=== PATIENT | female | born 1940 ===

== ENCOUNTER 2020-06-15 08:35 | Inpatient (IN) | payer OTHER ==
[~2020-06-15] VITALS: Ht 154.9 cm; Wt 91.6 kg
[2020-06-15] MEDS ORDERED: BAYER THERAPY325 MG PO (09:07)
[2020-06-15] MEDS ORDERED: NEURONTIN800 MG PO (09:07)
[2020-06-15] MEDS ORDERED: COZAAR100 MG PO (09:08)
[2020-06-15] MEDS ORDERED: MIRTAZAPINE15 M1 PO (09:08)
[2020-06-15] MEDS ORDERED: NIFEDIPINE20 MG PO (09:08)
[2020-06-15] MEDS ORDERED: LASIX40 MG PO (09:09)
[2020-06-15] MEDS ORDERED: ATACAND4 MG PO (09:09)
[2020-06-15] MEDS ORDERED: INTERMEZZO3.5 MG (09:10)
[2020-06-15] MEDS ORDERED: CARVEDILOL25 M1 PO (09:10)
[2020-06-15] MEDS ORDERED: ATORVASTATIN CA40 MG PO (09:10)
[2020-06-15] MEDS ORDERED: SYNTHROID175 MCG PO (09:11)
[2020-06-15] MEDS ORDERED: LANTUS SOL100 UNIT/1 SUBCUTANEO (09:12)
[2020-06-15] MEDS ORDERED: HUMALOG MI100 UNIT/2 SQ (09:12)
[2020-06-29] MEDS ORDERED: CARVEDILOL25 MG PO (12:41)
[2020-06-29] MEDS ORDERED: LIPITOR40 MG PO (12:42)
[2020-06-29] MEDS ORDERED: HYDRALAZINE HCL25 MG PO (12:42)
[2020-06-29] MEDS ORDERED: ST. JOSEPH ASPI81 M2 PO (12:43)
[2020-06-29] MEDS ORDERED: GABAPENTIN300 MG PO (12:43)
[2020-06-29] MEDS ORDERED: GABAPENTIN800 MG PO (12:43)
[2020-06-29] MEDS ORDERED: LASIX40 MG PO (12:45)
[2020-06-29] MEDS ORDERED: LANTUS SOL100 UNIT/1 SUBCUTANEO (12:46)
[2020-06-29] MEDS ORDERED: HUMALOG MI100 UNIT/2 SUBCUTANEO (12:47)
[2020-06-29] MEDS ORDERED: ZOLPIDEM TARTRA10 MG PO (12:48)
[2020-06-29] MEDS ORDERED: Procardia Xl 30MG TA PO (12:48)
[2020-06-29] MEDS ORDERED: BENADRYL50 MG PO (12:48)
[2020-06-29] MEDS ORDERED: SYNTHROID175 MCG PO (13:07)
== END 2020-06-29 13:32 | disposition home or self-care (01) | DRG 291 ==
LOC: ER 08:35 → MEDJ 13:14 → ICU-2 13:14 → MEDJ 06-18 12:53
PROVIDERS: ADMIT Internal Medicine; ATTEND Internal Medicine
PROC: B24BZZZ Ultrasonography of Heart with Aorta (ICD-10-PCS; principal; 2020-06-15)
PROC: B54DZZZ Ultrasonography of Bilateral Lower Extremity Veins (ICD-10-PCS; 2020-06-15)
PROC: 5A09557 Assistance with Respiratory Ventilation, Greater than 96 Consecutive Hours, Continuous Positive Airway Pressure (ICD-10-PCS; 2020-06-15)
PROC: 4A12X4Z Monitoring of Cardiac Electrical Activity, External Approach (ICD-10-PCS; 2020-06-18)
PROC: 4A033R1 Measurement of Arterial Saturation, Peripheral, Percutaneous Approach (ICD-10-PCS; 2020-06-19)
DX: I13.0 Hypertensive heart and chronic kidney disease with heart failure and stage 1 through stage 4 chronic kidney disease, or unspecified chronic kidney disease (principal); I50.33 Acute on chronic diastolic (congestive) heart failure; E87.2 Acidosis; J44.1 Chronic obstructive pulmonary disease with (acute) exacerbation; N18.9 Chronic kidney disease, unspecified; E11.9 Type 2 diabetes mellitus without complications; E03.9 Hypothyroidism, unspecified; E66.9 Obesity, unspecified; Z79.4 Long term (current) use of insulin; Z20.828 Contact with and (suspected) exposure to other viral communicable diseases; D64.9 Anemia, unspecified

== ENCOUNTER 2020-09-30 12:59 | Inpatient (IN) | payer OTHER ==
[~2020-09-30] VITALS: Ht 154.9 cm; Wt 245.0 kg
[~2020-09-30 12:59] MED LIST: ATACAND4 MG PO; ATORVASTATIN CA40 MG PO; BAYER THERAPY325 MG PO; BENADRYL50 MG PO; CARVEDILOL25 M1 PO; CARVEDILOL25 MG PO; COZAAR100 MG PO; GABAPENTIN300 MG PO; GABAPENTIN800 MG PO; HUMALOG MI100 UNIT/2 SQ; HUMALOG MI100 UNIT/2 SUBCUTANEO; HYDRALAZINE HCL25 MG PO; INTERMEZZO3.5 MG; LANTUS SOL100 UNIT/1 SUBCUTANEO; LASIX40 MG PO; LIPITOR40 MG PO; MIRTAZAPINE15 M1 PO; NEURONTIN800 MG PO; NIFEDIPINE20 MG PO; Procardia Xl 30MG TA PO; ST. JOSEPH ASPI81 M2 PO; SYNTHROID175 MCG PO; ZOLPIDEM TARTRA10 MG PO
== END 2020-12-04 13:09 | disposition expired | DRG 291 ==
LOC: ER 12:59 → ICU-2 18:47 → SURH 18:47 → ICU-2 10-05 07:49 → ICU 10-14 04:16 → SURH 10-24 13:52
PROVIDERS: ADMIT Internal Medicine; ATTEND Internal Medicine
PROC: 5A09557 Assistance with Respiratory Ventilation, Greater than 96 Consecutive Hours, Continuous Positive Airway Pressure (ICD-10-PCS; 2020-10-01)
PROC: 02H633Z Insertion of Infusion Device into Right Atrium, Percutaneous Approach (ICD-10-PCS; 2020-10-01)
PROC: 8E0ZXY6 Isolation (ICD-10-PCS; 2020-10-03)
PROC: 05HM33Z Insertion of Infusion Device into Right Internal Jugular Vein, Percutaneous Approach (ICD-10-PCS; 2020-10-03)
PROC: BW21ZZZ Computerized Tomography (CT Scan) of Abdomen and Pelvis (ICD-10-PCS; 2020-10-04)
PROC: 4A12X4Z Monitoring of Cardiac Electrical Activity, External Approach (ICD-10-PCS; 2020-10-24)
PROC: 5A1D70Z Performance of Urinary Filtration, Intermittent, Less than 6 Hours Per Day (ICD-10-PCS; 2020-11-24)
PROC: 4A033R1 Measurement of Arterial Saturation, Peripheral, Percutaneous Approach (ICD-10-PCS; principal; 2020-12-01)
DX: I13.0 Hypertensive heart and chronic kidney disease with heart failure and stage 1 through stage 4 chronic kidney disease, or unspecified chronic kidney disease (principal); I50.33 Acute on chronic diastolic (congestive) heart failure; A41.9 Sepsis, unspecified organism; R65.20 Severe sepsis without septic shock; J96.00 Acute respiratory failure, unspecified whether with hypoxia or hypercapnia; N17.8 Other acute kidney failure; J44.1 Chronic obstructive pulmonary disease with (acute) exacerbation; R18.8 Other ascites; G40.89 Other seizures; E87.2 Acidosis; E66.2 Morbid (severe) obesity with alveolar hypoventilation; M79.7 Fibromyalgia; E03.9 Hypothyroidism, unspecified; N18.9 Chronic kidney disease, unspecified; Z20.822 Contact with and (suspected) exposure to COVID-19; E88.81 Metabolic syndrome and other insulin resistance; Z79.4 Long term (current) use of insulin; D64.9 Anemia, unspecified; B96.89 Other specified bacterial agents as the cause of diseases classified elsewhere; E11.649 Type 2 diabetes mellitus with hypoglycemia without coma; Z66 Do not resuscitate